=== PATIENT | female | born 1945 | race Caucasian/White ===

== ENCOUNTER 2018-02-28 15:49 | Emergency (ER) | payer MEDICARE, OTHER ==
[~2018-02-28] VITALS: Ht 167.6 cm; Wt 89.1 kg
[2018-02-28 15:56] VITALS: Ht 167.6 cm; Wt 89.1 kg
[2018-02-28] MEDS ORDERED: KETOROLAC 15 MG INJ IV STA (16:59)
[2018-02-28] MEDS ORDERED: LISI30TA47 PO (17:26)
[2018-02-28] MEDS ORDERED: METO-407 PO (17:26)
[2018-02-28] MEDS ORDERED: NIFE90TA11 PO (17:26)
[2018-02-28] MEDS ORDERED: HYDR50TA3 PO (17:27)
[2018-02-28] MEDS ORDERED: CLOP75TA27 PO (17:27)
[2018-02-28] MEDS ORDERED: POTA-57 PO (17:28)
[2018-02-28] MEDS ORDERED: ASPI81TA52 PO (17:28)
[2018-02-28] MEDS ORDERED: [UNRECOGNIZED DRUG - CODE] PO (17:29)
[2018-02-28] MEDS ORDERED: VITA1CAP5 PO (17:29)
[2018-02-28] MEDS ORDERED: DOCU100T PO (17:30)
[2018-02-28] MEDS ORDERED: OMEG-158 PO (17:30)
--- NOTE | 2018-02-28 18:01 | ERD ---
ER Documentation Chief Complaint Chief Complaint Complains of right ankle pain x 3 days HPI This is a very pleasant 72-year-old female who presents for evaluation of right ankle pain times 3 days. She has no history of trauma, she denies fever, there is small amount of redness over the area, she denies any cough, or hemoptysis. She does have a history of coronary disease. The pain is aggravated by movement. ROS All systems reviewed and are negative except as per history of present illness. Medications Home Meds Reported Medications Docusate Sodium* (Dok*) 100 Mg Tablet, 100 MG PO DAILY, #30 CAP 02/28/18 Summit-3/Dha/Epa/Fish Oil (FISH OIL 1,000 MG SOFTGEL) 1 Each Capsule, 1 EACH PO DAILY, CAP 02/28/18 Vitamin B Complex & Vit C No.3 (B Complex with Vitamin C) 1 Each Capsule, 1 EACH PO DAILY, CAP 02/28/18 Multivitamin with Iron (Daily Vitamin + Iron) 1 Each Tablet, 1 EACH PO DAILY, TAB 02/28/18 Aspirin (Low Dose Aspirin) 81 Mg Tablet.dr, 81 MG PO DAILY, #30 TAB 02/28/18 Potassium Chloride* (Klor-Con*) 20 Meq Tabsr, 20 MEQ PO BID, TAB.SA 02/28/18 Clopidogrel Bisulfate (Clopidogrel) 75 Mg Tablet, 75 MG PO DAILY, #30 TAB 02/28/18 Hydrochlorothiazide* (Hydrochlorothiazide*) 50 Mg Tab, 50 MG PO DAILY, #30 TAB 02/28/18 Nifedipine* (Nifedipine ER*) 90 Mg Tablet.er, 90 MG PO DAILY, TAB 02/28/18 Metoprolol Tartrate* (Lopressor*) 100 Mg Tablet, 100 MG PO BID, #60 TAB 02/28/18 Lisinopril* (Lisinopril*) 30 Mg Tablet, 30 MG PO BID, #30 TAB 02/28/18 Allergies Allergies: Coded Allergies: Chsypdz-Ygs-Auj Reductase Inhibitor (Verified Allergy, Intermediate, 02/28/18) colesevelam (Verified Allergy, Unknown, 02/28/18) PMhx/Soc History of Surgery: Yes (4x CABG 2008, cholecystectomy, L knee, L rotator cuff) Hx Cardiac Disorders: Yes (HTN, cholesterol) Hx Alcohol Use: No Hx Substance Use: No Hx Tobacco Use: No Smoking Status: Never smoker Physical Exam Vitals Vital Signs Date Temp Pulse Resp B/P (MAP) Pulse Ox O2 O2 Flow FiO2 Time Delivery Rate 02/28/18 72 18 168/68 100 Room Air 16:56 (101) 02/28/18 97.9 69 20 209/88 98 15:56 (128) Physical Exam Const: No acute distress Head: Atraumatic Eyes: Normal Conjunctiva ENT: Normal External Ears, Nose and Mouth. Neck: Full range of motion. No meningismus. Resp: Clear to auscultation bilaterally Cardio: Regular rate and rhythm old sternotomy scar noted, no murmurs Abd: Soft, non tender, non distended. Normal bowel sounds Skin: No petechiae or rashes Back: No midline or flank tenderness Ext: There is a small amount of erythema over the medial ankle, there is no induration, no crepitus, no calf tenderness, no fluctuance Neur: Awake and alert Psych: Normal Mood and Affect Results 24 hrs Current Medications Medications Dose Sig/Larry Start Time Status Last (Trade) Ordered Route PRN Stop Time Admin Dose Reason Admin Ketorolac 15 mg ONCE STAT 02/28/18 DC 02/28/18 Tromethamine IV 16:59 02/28/18 17:05 (Toradol) 17:02 Procedures/MDM This 69-year-old female presents with pain around her ankle, and small amount of redness around the medial aspect of her right lower leg. There is no history of trauma, her x-ray was negative for fracture, ultrasound was negative for signs of DVT. She has full range of motion of her ankle, and she has no neurovascular deficits, very low suspicion for septic joint, at the area of redness involves an area outside the joint, cellulitis cannot be completely ruled out, and given her comorbidities I recommended that we treat empirically with antibiotics. She will be given Bactrim and Keflex. At discharge she was in no acute distress. Departure Diagnosis: Primary Impression: Ankle pain Chronicity: acute Laterality: right Qualified Codes: M25.571 - Pain in right ankle and joints of right foot Additional Impression: Cellulitis Site of cellulitis: unspecified site Qualified Codes: L03.90 - Cellulitis, unspecified Condition: Stable JACQUI CARTWRIGHT MD Feb 28, 2018 18:01
[2018-02-28] MEDS ORDERED: SULF1TAB31 PO (20:01)
[2018-02-28] MEDS ORDERED: CEPH-443 PO (20:01)
[2018-02-28 20:31] VITALS: BP 187/64; PULSE 68; RESP 18
== END 2018-02-28 20:34 | disposition home or self-care (01) ==
LOC: E/R 15:49
DX: M25.571 Pain in right ankle and joints of right foot (principal); L03.115 Cellulitis of right lower limb; I10 Essential (primary) hypertension; Z79.01 Long term (current) use of anticoagulants; Z79.82 Long term (current) use of aspirin; Z95.1 Presence of aortocoronary bypass graft
CPT/HCPCS: 73610; 93971; 96374; 99285; J1885